=== PATIENT | female | born 1965 | race Caucasian/White ===

== ENCOUNTER → 2017-04-07 | Outpatient (CLI) | payer BC ==
--- NOTE | 2017-04-08 11:39 | MM ---
Reason for exam: screening (asymptomatic). Last mammogram was performed 1 year and 4 months ago. History: Patient has history of other cancer at age 37. Family history of breast cancer in aunt at age 60. Taking hormonal contraceptives for 18 years beginning at age 32. Physical Findings: A clinical breast exam by your physician is recommended on an annual basis and results should be correlated with mammographic findings. MG Screening Mammo w CAD Bilateral CC and MLO view(s) were taken. Prior study comparison: December 12, 2015, bilateral MG screening mammo w CAD. September 28, 2014, bilateral MG screening mammo w CAD. There are scattered fibroglandular densities. There is no discrete abnormality. No significant changes when compared with prior studies. ASSESSMENT: Negative, BI-RAD 1 RECOMMENDATION: Routine screening mammogram of both breasts in 1 year.
== END | disposition home or self-care (01) ==
LOC: RADMAMWWP 08:03
PROVIDERS: ATTEND Obstetrics & Gynecology
DX: Z12.31 Encounter for screening mammogram for malignant neoplasm of breast (principal); Z80.3 Family history of malignant neoplasm of breast

== ENCOUNTER → 2018-12-17 | Outpatient (CLI) | payer BC ==
--- NOTE | 2018-12-17 09:00 | XR ---
EXAMINATION TYPE: XR chest 2V DATE OF EXAM: 12/17/2018 HISTORY: J18.9. REFERENCE: NONE. FINDINGS: The heart is mildly prominent. There are mild increased perihilar markings. Pleural space a re clear. IMPRESSION: FINDINGS CONSISTENT WITH BUT NOT DIAGNOSTIC OF BRONCHITIS.
== END | disposition home or self-care (01) ==
LOC: LABWHC1 08:25
PROVIDERS: ATTEND Physician Assistant Medical
DX: J18.9 Pneumonia, unspecified organism (principal)
CPT/HCPCS: 71046

== ENCOUNTER → 2019-01-14 | Outpatient (CLI) | payer BC ==
[2019-01-14 10:58] LABS: HCT 47.4 % (34.0-46.0); HGB 14.4 gm/dL (11.4-16.0); MCHC 30.4 g/dL (31.0-37.0); MCV 88.9 fL (80.0-100.0); Mean Platelet Volume 7.8; Platelet Count 329 k/uL (150-450); RBC 5.34 m/uL (3.80-5.40); RDW 14.9 % (11.5-15.5); WBC 8.6 k/uL (3.8-10.6)
[2019-01-14 11:15] LABS: Anion Gap 6 mmol/L; Blood Urea Nitrogen 16 mg/dL (7-17); Carbon Dioxide 28 mmol/L (22-30); Chloride 107 mmol/L (98-107); Potassium 4.5 mmol/L (3.5-5.1); Sodium 141 mmol/L (137-145)
== END | disposition home or self-care (01) ==
LOC: LABPAT 10:39
PROVIDERS: ATTEND Internal Medicine Cardiovascular Disease
DX: Z01.812 Encounter for preprocedural laboratory examination (principal); I48.0 Paroxysmal atrial fibrillation
CPT/HCPCS: 36415; 80051; 82565; 84520; 85027

== ENCOUNTER 2019-01-20 10:44 | Day surgery (SDC) | payer BC ==
[2019-01-19 08:53] VITALS: BMI 46.5
[~2019-01-20 10:44] MED LIST: ALPRAZolam 0.25 MG TAB PO PRN; ALPRAZolam 0.5 MG TAB PO PRN; ASPIRIN 325 MG TAB PO STA; ATORVASTATIN 80 MG TAB PO STA; NITROGLYCERIN SL TABS 0.4 MG TAB SUBLINGUAL PRN; SODIUM CHLORIDE 0.9% 1,000 ML in EMPTY BAG 1 BAG IV ONE
[2019-01-20] MEDS ORDERED: SODIUM CHLORIDE 0.9% 500 ML 500 ML IV ONE ×2 (11:09→13:24)
[2019-01-20 11:59] VITALS: TEMP 97
[2019-01-20] MEDS ORDERED: BENZOCAINE SPRAY 1 CAN TOPICAL ONE (12:05)
[2019-01-20] MEDS ORDERED: LIDOCAINE 1% INJ 10MG/ML (20 ML MDV) ONE (12:10)
[2019-01-20] MEDS ORDERED: PROPOFOL 10 MG/ML 20 ML VIAL IV ONE (12:10)
[2019-01-20] MEDS ORDERED: SODIUM CHLORIDE 0.9% 1,000 ML IV SCH (12:30)
[2019-01-20] MEDS ORDERED: AMIODARONE 360 MG in DEXTROSE 5% IN WATER 200 ML IV ONE ×2 (12:52)
--- NOTE | 2019-01-20 13:36 | ECHOT ---
TRANSESOPHAGEAL ECHOCARDIOGRAM This transesophageal echocardiogram was performed to rule out cardiac thrombi prior to the cardioversion. Patient was given intravenous sedation with propofol by the nurse third officer and transesophageal echocardiogram was performed without any complications. FINDINGS: Left ventricular chamber is normal in size. There is a mild global hypokinesia with estimated ejection fraction in the range of 40% to 45%. Mitral valve morphology is normal. Mild mitral regurgitation was noted. Left atrium is mildly enlarged. There is no evidence of thrombus in left atrium or atrial appendage. Right ventricle, right atrial chamber are normal in size. Interatrial septum is intact. There is no evidence of any PFO by saline contrast study. FINAL IMPRESSION: 1. There is no evidence of thrombus in left atrium or left atrial appendage. 2. Left ventricular systolic function is mildly impaired with ejection fraction in the range of 40% to 45%. 3. Mild mitral regurgitation is noted. 4. There is no evidence of any PFO by saline contrast study. RECOMMENDATIONS: Proceed with the cardioversion. MMODL / IJN: [id number] /
--- NOTE | 2019-01-20 13:36 | CE ---
CARDIAC ELECTROPHYSIOLOGY REPORT PROCEDURE: Cardioversion. PREOPERATIVE DIAGNOSIS: Persistent atrial fibrillation. POSTOPERATIVE DIAGNOSIS: Persistent atrial fibrillation. Patient was given intravenous sedation with propofol by the nurse machine cloth measurer and then the cardioversion was performed using 360 joules in synchronized mode to the normal sinus rhythm. The patient tolerated the procedure well. The patient will be given IV amiodarone drip for 6 hours and subsequently will be discharged home on amiodarone 200 mg 3 times a day to maintain her into the normal sinus rhythm. MMODL / IJN: [id number] /
[2019-01-20 17:43] VITALS: BP 114/70; PULSE 58; RESP 16
[2019-01-20] MEDS ORDERED: AMIODARONE 200 MG TAB PO SCH (22:00)
== END 2019-01-20 19:33 | disposition home or self-care (01) ==
LOC: CATHCVL 10:44 → 3SCARD 13:55 → CATHCVL 19:33
PROVIDERS: ATTEND Internal Medicine Cardiovascular Disease
DX: I48.1 Persistent atrial fibrillation (principal); I34.0 Nonrheumatic mitral (valve) insufficiency; I10 Essential (primary) hypertension; E89.0 Postprocedural hypothyroidism; E66.01 Morbid (severe) obesity due to excess calories; Z68.42 Body mass index [BMI] 45.0-49.9, adult; Z79.01 Long term (current) use of anticoagulants; Z79.890 Hormone replacement therapy; Z79.899 Other long term (current) drug therapy; Z91.041 Radiographic dye allergy status; Z91.09 Other allergy status, other than to drugs and biological substances
CPT/HCPCS: 93312; 93320; 93325; 92960; J2001; J2704; 93005

== ENCOUNTER → 2019-04-18 | Outpatient (CLI) | payer BC ==
--- NOTE | 2019-04-19 13:44 | MM ---
Reason for exam: screening (asymptomatic). Last mammogram was performed 2 years ago. History: Patient has history of other cancer at age 37. Family history of breast cancer in aunt at age 60. Taking hormonal contraceptives for 18 years beginning at age 32. Physical Findings: A clinical breast exam by your physician is recommended on an annual basis and results should be correlated with mammographic findings. MG 3D Screening Mammo W/Cad Bilateral CC and MLO view(s) were taken. Prior study comparison: April 07, 2017, bilateral MG screening mammo w CAD. December 12, 2015, bilateral MG screening mammo w CAD. There are scattered fibroglandular densities. No suspicious abnormality. No significant changes when compared with prior studies. ASSESSMENT: Negative, BI-RAD 1 RECOMMENDATION: Routine screening mammogram of both breasts in 1 year.
== END | disposition home or self-care (01) ==
LOC: RADMAMWWP 08:18
PROVIDERS: ATTEND Obstetrics & Gynecology
DX: Z12.31 Encounter for screening mammogram for malignant neoplasm of breast (principal); Z80.3 Family history of malignant neoplasm of breast
CPT/HCPCS: 77063; 77067

== ENCOUNTER → 2021-04-11 | Outpatient (CLI) | payer OTHER ==
--- NOTE | 2021-04-15 08:48 | MM ---
Reason for exam: screening (asymptomatic). Last mammogram was performed 2 years ago. History: Patient has history of other cancer at age 37. Family history of breast cancer in aunt at age 60. Taking hormonal contraceptives for 18 years beginning at age 32. Physical Findings: A clinical breast exam by your physician is recommended on an annual basis and results should be correlated with mammographic findings. MG Screening Mammo w CAD Bilateral CC and MLO view(s) were taken. Prior study comparison: April 18, 2019, bilateral MG 3d screening mammo w/cad. April 07, 2017, bilateral MG screening mammo w CAD. December 12, 2015, bilateral MG screening mammo w CAD. The breast tissue is almost entirely fat. No significant changes when compared with prior studies. ASSESSMENT: Negative, BI-RAD 1 RECOMMENDATION: Routine screening mammogram of both breasts in 1 year.
== END | disposition home or self-care (01) ==
LOC: RADMAMWWP 14:47
PROVIDERS: ATTEND Obstetrics & Gynecology
DX: Z12.31 Encounter for screening mammogram for malignant neoplasm of breast (principal); Z80.3 Family history of malignant neoplasm of breast
CPT/HCPCS: 77067

== ENCOUNTER → 2022-05-18 | Outpatient (CLI) | payer BC ==
--- NOTE | 2022-05-22 18:25 | MM ---
Reason for Exam: Screening (asymptomatic). Last mammogram was performed 1 year(s) and 1 month(s) ago. Patient History: Menarche at age 12. First Full-Term at age 32. Late child-bearing (after 32). Postmenopausal. Other cancer, age 37. Hormonal Contraceptives, starting at age 32 for 18 years. Maternal aunt had breast cancer, age 60. Risk Values: Stacie 5 year model risk: 1.7%. NCI Lifetime model risk: 12.4%. Prior Study Comparison: 04/07/2017 Bilateral Screening Mammogram, [facility]. 04/18/2019 Bilateral Screening Mammogram, [facility]. 04/11/2021 Bilateral Screening Mammogram, [facility]. Tissue Density: The breast tissue is almost entirely fat. Findings: Analyzed By CAD. There is no suspicious group of microcalcifications or new suspicious mass in either breast. Overall Assessment: Negative, BI-RAD 1 Management: Screening Mammogram of both breasts in 1 year. A clinical breast exam by your physician is recommended on an annual basis and results should be correlated with mammographic findings. Electronically signed and approved by: London Magana DO
== END | disposition home or self-care (01) ==
LOC: RADMAMWWP 13:13
PROVIDERS: ATTEND Obstetrics & Gynecology
DX: Z12.31 Encounter for screening mammogram for malignant neoplasm of breast (principal); Z78.0 Asymptomatic menopausal state; Z80.3 Family history of malignant neoplasm of breast
CPT/HCPCS: 77067

== ENCOUNTER → 2023-09-20 | Outpatient (CLI) | payer BC ==
--- NOTE | 2023-09-21 10:35 | MM ---
Reason for Exam: Screening (asymptomatic). Last mammogram was performed 1 year(s) and 4 month(s) ago. Patient History: Menarche at age 12. First Full-Term at age 32. Late child-bearing (after 32). Postmenopausal. Other cancer, age 37. Hormonal Contraceptives, starting at age 32 for 18 years. Maternal aunt had breast cancer, age 60. Risk Values: Stacie 5 year model risk: 1.8%. NCI Lifetime model risk: 12.2%. Prior Study Comparison: 04/18/2019 Bilateral Screening Mammogram, [facility]. 04/11/2021 Bilateral Screening Mammogram, [facility]. 05/18/2022 Bilateral MG screening mammo w CAD, [facility]. Tissue Density: The breast tissue is almost entirely fat. Findings: Analyzed By CAD. There is no suspicious group of microcalcifications or new suspicious mass. Overall Assessment: Negative, BI-RAD 1 Management: Screening Mammogram of both breasts in [address] [facility] will attempt to contact patient to return for supplemental views and ultrasound if indicated. Patient should continue monthly self-breast exams. A clinical breast exam by your physician is recommended on an annual basis. This exam should not preclude additional follow-up of suspicious palpable abnormalities. Note on Stacie scores and lifetime risk: 1. A Stacie score greater than 3% is considered moderate risk. If this is the case, consider specialist referral to assess eligibility for a risk reducing agent. 2. If overall lifetime risk for the development of breast cancer is 20% or higher, the patient may qualify for future screening with alternating mammogram and breast MRI. Electronically signed and approved by: London Magana DO
== END | disposition home or self-care (01) ==
LOC: RADMAMWWP 08:31
PROVIDERS: ATTEND Obstetrics & Gynecology
DX: Z12.31 Encounter for screening mammogram for malignant neoplasm of breast (principal); Z80.3 Family history of malignant neoplasm of breast; Z78.0 Asymptomatic menopausal state
CPT/HCPCS: 77067